=== PATIENT | female | born 1965 | race Asian ===

== ENCOUNTER 2019-11-02 14:10 | Inpatient (IN) | payer OTHER ==
[~2019-11-02] VITALS: Ht 160 cm; Wt 59.9 kg
[2019-11-02] MEDS ORDERED: LACTULOSE 20 GM/30 ML SOLUTION UDCUP PO PRN (16:00)
[2019-11-02] MEDS ORDERED: MELATONIN 5 MG TABLET PO PRN (16:00)
[2019-11-02] MEDS ORDERED: DEXTROSE 50%-WATER 25 GM/50 ML SYRINGE IVP PRN (16:45)
[2019-11-02] MEDS: INSULIN LISPRO 100 UNITS/ML SQ PRN ×2 (17:48→21:48)
[2019-11-02 18:29] LABS: GLUCOMETER DEV NAME(LOC) 2WR.1C; GLUCOSE,POINT OF CARE 161 MG/DL (70-110)
[2019-11-02 19:41] VITALS: BP 125/89
[2019-11-02] MEDS: IPRATROPIUM BROMIDE 0.5 MG/2.5 ML NEB SOLUTION NEB PRN (20:40)
[2019-11-02] MEDS: ALBUTEROL SULFATE 2.5 MG/0.5 ML NEB SOLUTION NEB PRN (20:40)
[2019-11-02 20:52] VITALS: BP 128/66
[2019-11-02] MEDS: DOCUSATE SODIUM 100 MG CAPSULE PO SCH (20:58)
[2019-11-02] MEDS: METOPROLOL TARTRATE 25 MG TABLET PO SCH (20:58)
[2019-11-02] MEDS: LORazepam 0.5 MG TABLET PO PRN (20:58)
[2019-11-02] MEDS: SIMVASTATIN 20 MG TABLET PO SCH (20:58)
[2019-11-02] MEDS: SENNA 187 MG TABLET PO SCH (20:58)
[2019-11-02] MEDS ORDERED: INSULIN GLARGINE,HUM.REC.ANLOG 100 UNITS/ML SQ SCH (21:00)
[2019-11-02 22:21] LABS: GLUCOMETER DEV NAME(LOC) 2WR.1C; GLUCOSE,POINT OF CARE 160 MG/DL (70-110)
[2019-11-02] MEDS: OXYGEN THERAPY IH SCH (23:15)
[2019-11-02 23:55] VITALS: BP 109/80
[2019-11-03] MEDS ORDERED: PNEUMOCOCCAL VACCINE POLYVALENT 0.5 ML VIAL [PPSV23] IM ONE (00:30)
[2019-11-03 06:10] LABS: GLUCOMETER DEV NAME(LOC) 2WR.1C; GLUCOSE,POINT OF CARE 148 MG/DL (70-110)
[2019-11-03 07:20] VITALS: BP 106/69
[2019-11-03] MEDS: IPRATROPIUM BROMIDE 0.5 MG/2.5 ML NEB SOLUTION NEB PRN ×4 (07:39→20:06)
[2019-11-03] MEDS: ALBUTEROL SULFATE 2.5 MG/0.5 ML NEB SOLUTION NEB PRN ×4 (07:39→20:06)
[2019-11-03] MEDS: OXYGEN THERAPY IH SCH ×2 (08:01→15:59)
[2019-11-03] MEDS: DOCUSATE SODIUM 100 MG CAPSULE PO SCH ×2 (08:02→20:48)
[2019-11-03 08:05] LABS: BASOPHILS % (AUTO) 0.8 % (0.0-2.0); EOSINOPHILS % (AUTO) 2.5 % (1.0-6.0); HEMATOCRIT 38.8 % (36-46); HEMOGLOBIN 12.5 g/dL (12.0-16.0); LYMPHOCYTES # (AUTO) 2.7 K/uL (1.0-4.8); LYMPHOCYTES % (AUTO) 30.4 % (22.0-44.0); MEAN CORPUSCULAR HEMOGLOBIN 29.4 pg (26.0-34.0); MEAN CORPUSCULAR HGB CONC 32.1 G/dL (31.0-37.0); MEAN CORPUSCULAR VOLUME 92 fL (80-100); MONOCYTES # (AUTO) 0.6 K/uL (0.1-1.0); MONOCYTES % (AUTO) 7.3 % (2.0-9.0); NEUTROPHILS # (AUTO) 5.3 K/uL (1.8-7.7); PLATELET COUNT (AUTO) 311 K/uL (150-450); RED BLOOD CELL COUNT(AUTO) 4.23 MIL/uL (4.00-5.20); RED CELL DISTRIBUTION WIDTH 17.9 % (11.5-14.5)
[2019-11-03] MEDS: HYDROCHLOROTHIAZIDE 25 MG TABLET PO SCH (08:21)
[2019-11-03] MEDS: FENOFIBRATE 48 MG TABLET PO SCH (08:22)
[2019-11-03] MEDS: METOPROLOL TARTRATE 25 MG TABLET PO SCH ×2 (08:22→20:36)
[2019-11-03] MEDS: MULTIVITAMINS WITH MINERALS, THERAPEUTIC TABLET PO SCH (08:22)
[2019-11-03] MEDS: ENOXAPARIN SODIUM 40 MG/0.4 ML PF SYRINGE SQ SCH (08:22)
[2019-11-03] MEDS: INSULIN GLARGINE,HUM.REC.ANLOG 100 UNITS/ML SQ SCH (08:23)
[2019-11-03 08:24] LABS: ALANINE AMINOTRANSFERASE 37 U/L (12-78); ALBUMIN 3.5 g/dL (3.4-5.0); ALKALINE PHOSPHATASE 78 U/L (46-116); ANION GAP 11 mmol/L (8-16); ASPARTATE AMINOTRANSFERASE 26 U/L (15-37); BILIRUBIN,TOTAL 0.7 mg/dL (0.1-1.0); CALCIUM, TOTAL 9.5 mg/dL (8.8-10.5); CARBON DIOXIDE 25 mmol/L (22-29); CHLORIDE 103 mmol/L (98-107); GLOMERULAR FILTR. RATE CALC > 60 mL/min (>60); GLUCOSE,RANDOM 170 mg/dL (70-110); POTASSIUM 4.1 mmol/L (3.5-5.1); SODIUM SERUM 139 mmol/L (136-145); UREA NITROGEN, BLOOD 12 mg/dL (7-18)
[2019-11-03] MEDS: INSULIN LISPRO 100 UNITS/ML SQ PRN ×3 (08:24→17:41)
[2019-11-03] MEDS: LOSARTAN POTASSIUM 50 MG TABLET PO SCH ×2 (09:00→13:26)
[2019-11-03] MEDS: AmLODIPine BESYLATE 5 MG TABLET PO SCH (09:00)
[2019-11-03] MEDS: COLD CREAM, SKIN EMOLLIENT 170 GM JAR TP SCH ×2 (09:30→20:37)
[2019-11-03 13:25] VITALS: BP 129/79
[2019-11-03 15:20] VITALS: BP 122/79
[2019-11-03 18:19] LABS: GLUCOMETER DEV NAME(LOC) 2WR.2; GLUCOSE,POINT OF CARE 167 MG/DL (70-110)
[2019-11-03] MEDS: SIMVASTATIN 20 MG TABLET PO SCH (20:36)
[2019-11-03] MEDS: LORazepam 0.5 MG TABLET PO PRN (20:37)
[2019-11-03] MEDS: SENNA 187 MG TABLET PO SCH (20:49)
[2019-11-03 21:20] LABS: GLUCOMETER DEV NAME(LOC) 2WR.2; GLUCOSE,POINT OF CARE 139 MG/DL (70-110)
[2019-11-03 23:52] LABS: GLUCOMETER DEV NAME(LOC) 2WR.1C; GLUCOSE,POINT OF CARE 145 MG/DL (70-110)
[2019-11-04] MEDS: OXYGEN THERAPY IH SCH ×4 (00:07→23:01)
[2019-11-04 01:19] VITALS: BP 108/71
[2019-11-04 06:06] LABS: GLUCOMETER DEV NAME(LOC) 2WR.2; GLUCOSE,POINT OF CARE 131 MG/DL (70-110)
[2019-11-04 07:05] VITALS: BP 128/77
[2019-11-04] MEDS: ALBUTEROL SULFATE 2.5 MG/0.5 ML NEB SOLUTION NEB PRN ×3 (07:34→20:22)
[2019-11-04] MEDS: IPRATROPIUM BROMIDE 0.5 MG/2.5 ML NEB SOLUTION NEB PRN ×3 (07:35→20:22)
[2019-11-04] MEDS: METOPROLOL TARTRATE 25 MG TABLET PO SCH ×2 (08:09→20:04)
[2019-11-04] MEDS: HYDROCHLOROTHIAZIDE 25 MG TABLET PO SCH (08:12)
[2019-11-04] MEDS: MULTIVITAMINS WITH MINERALS, THERAPEUTIC TABLET PO SCH (08:13)
[2019-11-04] MEDS: LOSARTAN POTASSIUM 50 MG TABLET PO SCH (08:13)
[2019-11-04] MEDS: FENOFIBRATE 48 MG TABLET PO SCH (08:14)
[2019-11-04] MEDS: COLD CREAM, SKIN EMOLLIENT 170 GM JAR TP SCH ×2 (08:15→21:16)
[2019-11-04] MEDS: ENOXAPARIN SODIUM 40 MG/0.4 ML PF SYRINGE SQ SCH (08:15)
[2019-11-04] MEDS: INSULIN GLARGINE,HUM.REC.ANLOG 100 UNITS/ML SQ SCH (08:21)
[2019-11-04] MEDS: DOCUSATE SODIUM 100 MG CAPSULE PO SCH ×3 (09:00→20:59)
[2019-11-04 10:54] VITALS: BP 110/67
[2019-11-04] MEDS: AmLODIPine BESYLATE 5 MG TABLET PO SCH (10:58)
[2019-11-04] MEDS: INSULIN LISPRO 100 UNITS/ML SQ PRN ×2 (12:39→17:46)
[2019-11-04 12:43] LABS: GLUCOMETER DEV NAME(LOC) 2WR.2; GLUCOSE,POINT OF CARE 183 MG/DL (70-110)
[2019-11-04 15:15] VITALS: BP 108/60
[2019-11-04 17:50] LABS: GLUCOMETER DEV NAME(LOC) 2WR.2; GLUCOSE,POINT OF CARE 207 MG/DL (70-110)
[2019-11-04 19:58] VITALS: BP 118/61
[2019-11-04] MEDS: SENNA 187 MG TABLET PO SCH ×2 (20:04→20:59)
[2019-11-04] MEDS: SIMVASTATIN 20 MG TABLET PO SCH (20:05)
[2019-11-04] MEDS: LORazepam 0.5 MG TABLET PO PRN ×2 (20:05→21:07)
[2019-11-04 20:59] LABS: GLUCOMETER DEV NAME(LOC) 2WR.2; GLUCOSE,POINT OF CARE 126 MG/DL (70-110)
[2019-11-05 00:30] VITALS: BP 115/73
[2019-11-05 06:57] LABS: GLUCOMETER DEV NAME(LOC) 2WR.2; GLUCOSE,POINT OF CARE 131 MG/DL (70-110)
[2019-11-05 07:14] VITALS: BP 111/78
[2019-11-05] MEDS: OXYGEN THERAPY IH SCH ×3 (07:23→23:01)
[2019-11-05] MEDS: ALBUTEROL SULFATE 2.5 MG/0.5 ML NEB SOLUTION NEB PRN ×3 (07:23→19:46)
[2019-11-05] MEDS: IPRATROPIUM BROMIDE 0.5 MG/2.5 ML NEB SOLUTION NEB PRN ×3 (07:23→19:46)
[2019-11-05] MEDS: HYDROCHLOROTHIAZIDE 25 MG TABLET PO SCH (08:42)
[2019-11-05] MEDS: FENOFIBRATE 48 MG TABLET PO SCH (08:42)
[2019-11-05] MEDS: ENOXAPARIN SODIUM 40 MG/0.4 ML PF SYRINGE SQ SCH (08:43)
[2019-11-05] MEDS: LOSARTAN POTASSIUM 50 MG TABLET PO SCH (08:43)
[2019-11-05] MEDS: MULTIVITAMINS WITH MINERALS, THERAPEUTIC TABLET PO SCH (08:43)
[2019-11-05] MEDS: DOCUSATE SODIUM 100 MG CAPSULE PO SCH ×2 (08:43→20:21)
[2019-11-05] MEDS: METOPROLOL TARTRATE 25 MG TABLET PO SCH ×2 (08:43→20:21)
[2019-11-05] MEDS: AmLODIPine BESYLATE 5 MG TABLET PO SCH (08:43)
[2019-11-05] MEDS: INSULIN GLARGINE,HUM.REC.ANLOG 100 UNITS/ML SQ SCH (08:50)
[2019-11-05] MEDS: COLD CREAM, SKIN EMOLLIENT 170 GM JAR TP SCH ×2 (08:52→20:22)
[2019-11-05] MEDS: GuaiFENesin [SUGAR-FREE] 200 MG/10 ML SOLUTION UDCUP PO PRN ×2 (12:24→23:02)
[2019-11-05 13:32] LABS: GLUCOMETER DEV NAME(LOC) 2WR.2; GLUCOSE,POINT OF CARE 118 MG/DL (70-110)
[2019-11-05 15:15] VITALS: BP 111/74
[2019-11-05] MEDS: GABAPENTIN 100 MG CAPSULE PO SCH ×2 (15:24→20:21)
[2019-11-05] MEDS: INSULIN LISPRO 100 UNITS/ML SQ PRN ×2 (17:34→20:25)
[2019-11-05 17:55] LABS: GLUCOMETER DEV NAME(LOC) 2WR.2; GLUCOSE,POINT OF CARE 158 MG/DL (70-110)
[2019-11-05] MEDS: SIMVASTATIN 20 MG TABLET PO SCH (20:21)
[2019-11-05] MEDS: SENNA 187 MG TABLET PO SCH (20:21)
[2019-11-05] MEDS: LORazepam 0.5 MG TABLET PO PRN (20:22)
[2019-11-05 20:54] LABS: GLUCOMETER DEV NAME(LOC) 2WR.2; GLUCOSE,POINT OF CARE 166 MG/DL (70-110)
[2019-11-05 23:13] VITALS: BP 129/67
[2019-11-06 06:10] LABS: GLUCOMETER DEV NAME(LOC) 2WR.2; GLUCOSE,POINT OF CARE 142 MG/DL (70-110)
[2019-11-06 07:10] VITALS: BP 111/73
[2019-11-06] MEDS: ENOXAPARIN SODIUM 40 MG/0.4 ML PF SYRINGE SQ SCH (08:12)
[2019-11-06] MEDS: GuaiFENesin [SUGAR-FREE] 200 MG/10 ML SOLUTION UDCUP PO PRN ×3 (08:12→20:42)
[2019-11-06] MEDS: GABAPENTIN 100 MG CAPSULE PO SCH ×3 (08:13→20:27)
[2019-11-06] MEDS: DOCUSATE SODIUM 100 MG CAPSULE PO SCH ×2 (08:13→20:27)
[2019-11-06] MEDS: MULTIVITAMINS WITH MINERALS, THERAPEUTIC TABLET PO SCH (08:13)
[2019-11-06] MEDS: AmLODIPine BESYLATE 5 MG TABLET PO SCH (08:13)
[2019-11-06] MEDS: LOSARTAN POTASSIUM 50 MG TABLET PO SCH (08:13)
[2019-11-06] MEDS: HYDROCHLOROTHIAZIDE 25 MG TABLET PO SCH (08:13)
[2019-11-06] MEDS: METOPROLOL TARTRATE 25 MG TABLET PO SCH ×2 (08:13→20:27)
[2019-11-06] MEDS: FENOFIBRATE 48 MG TABLET PO SCH (08:13)
[2019-11-06] MEDS: OXYGEN THERAPY IH SCH ×2 (08:47→22:38)
[2019-11-06] MEDS: COLD CREAM, SKIN EMOLLIENT 170 GM JAR TP SCH ×2 (08:48→20:33)
[2019-11-06] MEDS: INSULIN LISPRO 100 UNITS/ML SQ PRN ×2 (08:50→17:40)
[2019-11-06] MEDS: INSULIN GLARGINE,HUM.REC.ANLOG 100 UNITS/ML SQ SCH (08:52)
[2019-11-06] MEDS: ALBUTEROL SULFATE 2.5 MG/0.5 ML NEB SOLUTION NEB PRN ×4 (09:10→22:31)
[2019-11-06] MEDS: IPRATROPIUM BROMIDE 0.5 MG/2.5 ML NEB SOLUTION NEB PRN ×4 (09:10→22:30)
[2019-11-06 12:51] LABS: GLUCOMETER DEV NAME(LOC) 2WR.2; GLUCOSE,POINT OF CARE 134 MG/DL (70-110)
[2019-11-06] MEDS: ACETAMINOPHEN 325 MG TABLET PO PRN (13:43)
[2019-11-06 15:20] VITALS: BP 113/75
[2019-11-06 17:57] LABS: GLUCOMETER DEV NAME(LOC) 2WR.2; GLUCOSE,POINT OF CARE 152 MG/DL (70-110)
[2019-11-06] MEDS: SIMVASTATIN 20 MG TABLET PO SCH (20:27)
[2019-11-06] MEDS: LORazepam 0.5 MG TABLET PO PRN (20:27)
[2019-11-06] MEDS: SENNA 187 MG TABLET PO SCH (20:32)
[2019-11-07] VITALS: BP 98/73
[2019-11-07 01:00] VITALS: BP 120/70
[2019-11-07] MEDS: OXYGEN THERAPY IH SCH ×4 (03:33→23:22)
[2019-11-07 05:40] LABS: GLUCOMETER DEV NAME(LOC) 2WR.1C; GLUCOSE,POINT OF CARE 139 MG/DL (70-110)
[2019-11-07 06:21] LABS: GLUCOMETER DEV NAME(LOC) 2WR.1C; GLUCOSE,POINT OF CARE 133 MG/DL (70-110)
[2019-11-07] MEDS: GuaiFENesin [SUGAR-FREE] 200 MG/10 ML SOLUTION UDCUP PO PRN ×3 (08:35→22:09)
[2019-11-07] MEDS: DOCUSATE SODIUM 100 MG CAPSULE PO SCH ×3 (08:36→20:43)
[2019-11-07] MEDS: INSULIN GLARGINE,HUM.REC.ANLOG 100 UNITS/ML SQ SCH (08:39)
[2019-11-07 08:56] VITALS: BP 121/72
[2019-11-07] MEDS: AmLODIPine BESYLATE 5 MG TABLET PO SCH (09:00)
[2019-11-07] MEDS: METOPROLOL TARTRATE 25 MG TABLET PO SCH ×2 (09:00→20:38)
[2019-11-07] MEDS: LOSARTAN POTASSIUM 50 MG TABLET PO SCH (09:20)
[2019-11-07] MEDS: FENOFIBRATE 48 MG TABLET PO SCH (09:20)
[2019-11-07] MEDS: GABAPENTIN 100 MG CAPSULE PO SCH ×3 (09:21→20:38)
[2019-11-07] MEDS: ENOXAPARIN SODIUM 40 MG/0.4 ML PF SYRINGE SQ SCH (09:21)
[2019-11-07] MEDS: HYDROCHLOROTHIAZIDE 25 MG TABLET PO SCH (09:21)
[2019-11-07] MEDS: MULTIVITAMINS WITH MINERALS, THERAPEUTIC TABLET PO SCH (09:21)
[2019-11-07] MEDS: COLD CREAM, SKIN EMOLLIENT 170 GM JAR TP SCH ×2 (09:34→20:42)
[2019-11-07 13:03] LABS: GLUCOMETER DEV NAME(LOC) 2WR.1C; GLUCOSE,POINT OF CARE 138 MG/DL (70-110)
[2019-11-07 15:35] VITALS: BP 113/75
[2019-11-07] MEDS: IPRATROPIUM BROMIDE 0.5 MG/2.5 ML NEB SOLUTION NEB PRN ×2 (16:09→20:09)
[2019-11-07] MEDS: ALBUTEROL SULFATE 2.5 MG/0.5 ML NEB SOLUTION NEB PRN ×2 (16:09→20:09)
[2019-11-07] MEDS: INSULIN LISPRO 100 UNITS/ML SQ PRN (18:05)
[2019-11-07] MEDS: MetFORMIN HCL 500 MG TABLET PO SCH (18:05)
[2019-11-07 19:43] VITALS: BP 109/72
[2019-11-07] MEDS: SIMVASTATIN 20 MG TABLET PO SCH (20:38)
[2019-11-07] MEDS: LORazepam 0.5 MG TABLET PO PRN (20:42)
[2019-11-07] MEDS: SENNA 187 MG TABLET PO SCH (20:44)
[2019-11-07 22:08] LABS: GLUCOMETER DEV NAME(LOC) 2WR.1C; GLUCOSE,POINT OF CARE 137 MG/DL (70-110)
[2019-11-07 22:16] LABS: GLUCOMETER DEV NAME(LOC) 2WR.2; GLUCOSE,POINT OF CARE 164 MG/DL (70-110)
[2019-11-08 05:30] VITALS: BP 111/76
[2019-11-08 06:00] LABS: GLUCOMETER DEV NAME(LOC) 2WR.2; GLUCOSE,POINT OF CARE 141 MG/DL (70-110)
[2019-11-08 07:13] VITALS: BP 119/72
[2019-11-08] MEDS: MULTIVITAMINS WITH MINERALS, THERAPEUTIC TABLET PO SCH (08:06)
[2019-11-08] MEDS: METOPROLOL TARTRATE 25 MG TABLET PO SCH ×2 (08:07→20:21)
[2019-11-08] MEDS: MetFORMIN HCL 500 MG TABLET PO SCH ×2 (08:07→17:26)
[2019-11-08] MEDS: HYDROCHLOROTHIAZIDE 25 MG TABLET PO SCH (08:07)
[2019-11-08] MEDS: GABAPENTIN 100 MG CAPSULE PO SCH ×3 (08:07→20:21)
[2019-11-08] MEDS: LOSARTAN POTASSIUM 50 MG TABLET PO SCH (08:07)
[2019-11-08] MEDS: COLD CREAM, SKIN EMOLLIENT 170 GM JAR TP SCH ×2 (08:08→20:22)
[2019-11-08] MEDS: ENOXAPARIN SODIUM 40 MG/0.4 ML PF SYRINGE SQ SCH (08:08)
[2019-11-08] MEDS: INSULIN LISPRO 100 UNITS/ML SQ PRN ×2 (08:11→17:30)
[2019-11-08] MEDS: FENOFIBRATE 48 MG TABLET PO SCH (08:13)
[2019-11-08] MEDS: OXYGEN THERAPY IH SCH ×3 (08:16→20:53)
[2019-11-08] MEDS: DOCUSATE SODIUM 100 MG CAPSULE PO SCH ×2 (08:19→20:21)
[2019-11-08] MEDS: GuaiFENesin [SUGAR-FREE] 200 MG/10 ML SOLUTION UDCUP PO PRN ×2 (09:25→19:24)
[2019-11-08 13:09] LABS: GLUCOMETER DEV NAME(LOC) 2WR.2; GLUCOSE,POINT OF CARE 114 MG/DL (70-110)
[2019-11-08] MEDS: ESCITALOPRAM OXALATE 10 MG TABLET PO SCH (13:14)
[2019-11-08 15:04] VITALS: BP 131/84
[2019-11-08 17:26] LABS: GLUCOMETER DEV NAME(LOC) 2WR.2; GLUCOSE,POINT OF CARE 147 MG/DL (70-110)
[2019-11-08] MEDS: SENNA 187 MG TABLET PO SCH (20:21)
[2019-11-08] MEDS: SIMVASTATIN 20 MG TABLET PO SCH (20:21)
[2019-11-08] MEDS: LORazepam 0.5 MG TABLET PO PRN (20:28)
[2019-11-08] MEDS: ALBUTEROL SULFATE 2.5 MG/0.5 ML NEB SOLUTION NEB PRN (20:53)
[2019-11-08] MEDS: IPRATROPIUM BROMIDE 0.5 MG/2.5 ML NEB SOLUTION NEB PRN (20:53)
[2019-11-08 21:47] LABS: GLUCOMETER DEV NAME(LOC) 2WR.2; GLUCOSE,POINT OF CARE 119 MG/DL (70-110)
[2019-11-09 05:23] VITALS: BP 126/81
[2019-11-09 06:24] LABS: GLUCOMETER DEV NAME(LOC) 2WR.2; GLUCOSE,POINT OF CARE 178 MG/DL (70-110)
[2019-11-09 07:30] VITALS: BP 122/79
[2019-11-09] MEDS: ENOXAPARIN SODIUM 40 MG/0.4 ML PF SYRINGE SQ SCH (07:55)
[2019-11-09] MEDS: OXYGEN THERAPY IH SCH ×3 (07:55→23:17)
[2019-11-09] MEDS: MetFORMIN HCL 500 MG TABLET PO SCH ×2 (07:56→17:52)
[2019-11-09] MEDS: GuaiFENesin [SUGAR-FREE] 200 MG/10 ML SOLUTION UDCUP PO PRN ×2 (07:56→21:10)
[2019-11-09] MEDS: IPRATROPIUM BROMIDE 0.5 MG/2.5 ML NEB SOLUTION NEB PRN ×2 (08:11→15:21)
[2019-11-09] MEDS: ALBUTEROL SULFATE 2.5 MG/0.5 ML NEB SOLUTION NEB PRN ×2 (08:11→15:22)
[2019-11-09] MEDS: INSULIN LISPRO 100 UNITS/ML SQ PRN (08:27)
[2019-11-09] MEDS: GABAPENTIN 100 MG CAPSULE PO SCH ×3 (08:28→20:00)
[2019-11-09] MEDS: FENOFIBRATE 48 MG TABLET PO SCH (08:28)
[2019-11-09] MEDS: HYDROCHLOROTHIAZIDE 25 MG TABLET PO SCH (08:28)
[2019-11-09] MEDS: ESCITALOPRAM OXALATE 10 MG TABLET PO SCH (08:28)
[2019-11-09] MEDS: MULTIVITAMINS WITH MINERALS, THERAPEUTIC TABLET PO SCH (08:28)
[2019-11-09] MEDS: METOPROLOL TARTRATE 25 MG TABLET PO SCH ×2 (08:28→20:59)
[2019-11-09] MEDS: LOSARTAN POTASSIUM 50 MG TABLET PO SCH (08:28)
[2019-11-09] MEDS: DOCUSATE SODIUM 100 MG CAPSULE PO SCH ×2 (09:00→20:00)
[2019-11-09] MEDS: CALCIUM CARBONATE 500 MG CHEWABLE TABLET CHEW PRN ×2 (09:09→19:59)
[2019-11-09] MEDS: COLD CREAM, SKIN EMOLLIENT 170 GM JAR TP SCH ×2 (09:10→20:02)
[2019-11-09] MEDS: ACETAMINOPHEN 325 MG TABLET PO PRN (12:28)
[2019-11-09 13:20] LABS: GLUCOMETER DEV NAME(LOC) 2WR.2; GLUCOSE,POINT OF CARE 124 MG/DL (70-110)
[2019-11-09 15:27] VITALS: BP 115/67
[2019-11-09 19:16] LABS: GLUCOMETER DEV NAME(LOC) 2WR.2; GLUCOSE,POINT OF CARE 101 MG/DL (70-110)
[2019-11-09] MEDS: SIMVASTATIN 20 MG TABLET PO SCH (20:00)
[2019-11-09] MEDS: SENNA 187 MG TABLET PO SCH (20:01)
[2019-11-09] MEDS: LORazepam 0.5 MG TABLET PO PRN (20:59)
[2019-11-09 21:17] VITALS: BP 134/84
[2019-11-10 05:23] VITALS: BP 115/87
[2019-11-10 05:33] LABS: GLUCOMETER DEV NAME(LOC) 2WR.2; GLUCOSE,POINT OF CARE 133 MG/DL (70-110)
[2019-11-10 06:19] LABS: GLUCOMETER DEV NAME(LOC) 2WR.1C; GLUCOSE,POINT OF CARE 134 MG/DL (70-110)
[2019-11-10] MEDS: OXYGEN THERAPY IH SCH ×3 (08:14→23:42)
[2019-11-10] MEDS: LOSARTAN POTASSIUM 50 MG TABLET PO SCH (08:14)
[2019-11-10] MEDS: METOPROLOL TARTRATE 25 MG TABLET PO SCH ×2 (08:14→21:30)
[2019-11-10] MEDS: CALCIUM CARBONATE 500 MG CHEWABLE TABLET CHEW PRN ×4 (08:14→21:30)
[2019-11-10] MEDS: COLD CREAM, SKIN EMOLLIENT 170 GM JAR TP SCH ×2 (08:14→21:31)
[2019-11-10] MEDS: FENOFIBRATE 48 MG TABLET PO SCH (08:15)
[2019-11-10] MEDS: ESCITALOPRAM OXALATE 10 MG TABLET PO SCH (08:15)
[2019-11-10] MEDS: HYDROCHLOROTHIAZIDE 25 MG TABLET PO SCH (08:15)
[2019-11-10] MEDS: MetFORMIN HCL 500 MG TABLET PO SCH ×2 (08:15→17:29)
[2019-11-10] MEDS: GABAPENTIN 100 MG CAPSULE PO SCH ×3 (08:15→21:30)
[2019-11-10] MEDS: MULTIVITAMINS WITH MINERALS, THERAPEUTIC TABLET PO SCH (08:15)
[2019-11-10] MEDS: GuaiFENesin [SUGAR-FREE] 200 MG/10 ML SOLUTION UDCUP PO PRN (08:16)
[2019-11-10] MEDS: ENOXAPARIN SODIUM 40 MG/0.4 ML PF SYRINGE SQ SCH (08:16)
[2019-11-10 08:30] VITALS: BP 113/77
[2019-11-10] MEDS: IPRATROPIUM BROMIDE 0.5 MG/2.5 ML NEB SOLUTION NEB PRN ×3 (08:32→22:38)
[2019-11-10] MEDS: ALBUTEROL SULFATE 2.5 MG/0.5 ML NEB SOLUTION NEB PRN ×3 (08:32→22:38)
[2019-11-10] MEDS: DOCUSATE SODIUM 100 MG CAPSULE PO SCH ×2 (09:00→20:25)
[2019-11-10] MEDS ORDERED: MULT-248 PO (13:58)
[2019-11-10] MEDS ORDERED: METO25 PO (13:58)
[2019-11-10] MEDS ORDERED: FENO48TA20 PO (13:58)
[2019-11-10] MEDS ORDERED: ESCI-8 PO (13:58)
[2019-11-10] MEDS ORDERED: GABA-1216 PO (13:58)
[2019-11-10] MEDS ORDERED: ALBO180CR TP (13:58)
[2019-11-10] MEDS ORDERED: DOCU-275 PO (13:58)
[2019-11-10] MEDS ORDERED: METF-444 PO (13:58)
[2019-11-10] MEDS ORDERED: SIMV-260 PO (13:58)
[2019-11-10] MEDS ORDERED: LOSA50TA37 PO (13:58)
[2019-11-10] MEDS ORDERED: HYDR-1475 PO (13:58)
[2019-11-10] MEDS ORDERED: SENN8.6T90 PO (13:58)
[2019-11-10 16:25] VITALS: BP 130/84
[2019-11-10] MEDS: ACETAMINOPHEN 325 MG TABLET PO PRN (18:45)
[2019-11-10] MEDS: SENNA 187 MG TABLET PO SCH (20:25)
[2019-11-10] MEDS: SIMVASTATIN 20 MG TABLET PO SCH (21:30)
[2019-11-10] MEDS: LORazepam 0.5 MG TABLET PO PRN (21:36)
[2019-11-10 22:15] LABS: GLUCOMETER DEV NAME(LOC) 2WR.2; GLUCOSE,POINT OF CARE 98 MG/DL (70-110)
[2019-11-10 22:15] LABS: GLUCOMETER DEV NAME(LOC) 2WR.2; GLUCOSE,POINT OF CARE 123 MG/DL (70-110)
[2019-11-10 23:49] VITALS: BP 130/84
[2019-11-11 04:55] LABS: GLUCOMETER DEV NAME(LOC) 2WR.1C; GLUCOSE,POINT OF CARE 104 MG/DL (70-110)
[2019-11-11] MEDS: CALCIUM CARBONATE 500 MG CHEWABLE TABLET CHEW PRN ×3 (06:04→21:06)
[2019-11-11 06:34] LABS: GLUCOMETER DEV NAME(LOC) 2WR.2; GLUCOSE,POINT OF CARE 129 MG/DL (70-110)
[2019-11-11] MEDS: OXYGEN THERAPY IH SCH ×2 (07:51→15:59)
[2019-11-11] MEDS: MetFORMIN HCL 500 MG TABLET PO SCH (07:51)
[2019-11-11] MEDS: IPRATROPIUM BROMIDE 0.5 MG/2.5 ML NEB SOLUTION NEB PRN ×2 (07:57→18:53)
[2019-11-11] MEDS: ALBUTEROL SULFATE 2.5 MG/0.5 ML NEB SOLUTION NEB PRN ×2 (07:58→18:52)
[2019-11-11 07:59] VITALS: BP 117/72
[2019-11-11] MEDS: ENOXAPARIN SODIUM 40 MG/0.4 ML PF SYRINGE SQ SCH (08:27)
[2019-11-11] MEDS: ESCITALOPRAM OXALATE 10 MG TABLET PO SCH (08:27)
[2019-11-11] MEDS: LOSARTAN POTASSIUM 50 MG TABLET PO SCH (08:27)
[2019-11-11] MEDS: GABAPENTIN 100 MG CAPSULE PO SCH ×3 (08:27→20:24)
[2019-11-11] MEDS: MULTIVITAMINS WITH MINERALS, THERAPEUTIC TABLET PO SCH (08:27)
[2019-11-11] MEDS: COLD CREAM, SKIN EMOLLIENT 170 GM JAR TP SCH ×2 (08:28→20:25)
[2019-11-11] MEDS: HYDROCHLOROTHIAZIDE 25 MG TABLET PO SCH (08:28)
[2019-11-11] MEDS: DOCUSATE SODIUM 100 MG CAPSULE PO SCH ×2 (08:28→20:25)
[2019-11-11] MEDS: FENOFIBRATE 48 MG TABLET PO SCH (08:28)
[2019-11-11] MEDS: METOPROLOL TARTRATE 25 MG TABLET PO SCH ×2 (08:28→20:24)
[2019-11-11] MEDS: GuaiFENesin [SUGAR-FREE] 200 MG/10 ML SOLUTION UDCUP PO PRN (08:58)
[2019-11-11 13:02] LABS: GLUCOMETER DEV NAME(LOC) 2WR.2; GLUCOSE,POINT OF CARE 142 MG/DL (70-110)
[2019-11-11] MEDS: SIMETHICONE 80 MG CHEWABLE TABLET CHEW PRN ×3 (13:18→20:25)
[2019-11-11 15:10] VITALS: BP 133/84
[2019-11-11 18:04] LABS: GLUCOMETER DEV NAME(LOC) 2WR.2; GLUCOSE,POINT OF CARE 108 MG/DL (70-110)
[2019-11-11] MEDS: SIMVASTATIN 20 MG TABLET PO SCH (20:24)
[2019-11-11] MEDS: LORazepam 0.5 MG TABLET PO PRN (20:24)
[2019-11-11] MEDS: PANTOPRAZOLE SODIUM 40 MG DR TABLET PO SCH (20:24)
[2019-11-11] MEDS: SENNA 187 MG TABLET PO SCH (20:25)
[2019-11-11 20:44] LABS: GLUCOMETER DEV NAME(LOC) 2WR.2; GLUCOSE,POINT OF CARE 135 MG/DL (70-110)
[2019-11-12 00:16] VITALS: BP 115/65
[2019-11-12] MEDS: OXYGEN THERAPY IH SCH ×4 (01:07→22:56)
[2019-11-12 07:13] LABS: GLUCOMETER DEV NAME(LOC) 2WR.2; GLUCOSE,POINT OF CARE 113 MG/DL (70-110)
[2019-11-12 08:08] VITALS: BP 106/61
[2019-11-12] MEDS: IPRATROPIUM BROMIDE 0.5 MG/2.5 ML NEB SOLUTION NEB PRN ×3 (08:56→22:25)
[2019-11-12] MEDS: ALBUTEROL SULFATE 2.5 MG/0.5 ML NEB SOLUTION NEB PRN ×3 (08:56→22:25)
[2019-11-12] MEDS: DOCUSATE SODIUM 100 MG CAPSULE PO SCH ×2 (09:00→20:54)
[2019-11-12] MEDS: FENOFIBRATE 48 MG TABLET PO SCH (09:31)
[2019-11-12] MEDS: ENOXAPARIN SODIUM 40 MG/0.4 ML PF SYRINGE SQ SCH (09:32)
[2019-11-12] MEDS: LOSARTAN POTASSIUM 50 MG TABLET PO SCH (09:35)
[2019-11-12] MEDS: SitaGLIPtin PHOSPHATE 50 MG TABLET PO SCH (09:35)
[2019-11-12] MEDS: METOPROLOL TARTRATE 25 MG TABLET PO SCH ×2 (09:36→20:54)
[2019-11-12] MEDS: GABAPENTIN 100 MG CAPSULE PO SCH ×3 (09:36→20:54)
[2019-11-12] MEDS: HYDROCHLOROTHIAZIDE 25 MG TABLET PO SCH (09:36)
[2019-11-12] MEDS: MULTIVITAMINS WITH MINERALS, THERAPEUTIC TABLET PO SCH (09:36)
[2019-11-12] MEDS: ESCITALOPRAM OXALATE 10 MG TABLET PO SCH (09:37)
[2019-11-12] MEDS: SIMETHICONE 80 MG CHEWABLE TABLET CHEW PRN ×2 (09:40→20:53)
[2019-11-12] MEDS: CALCIUM CARBONATE 500 MG CHEWABLE TABLET CHEW PRN ×3 (09:44→21:07)
[2019-11-12] MEDS: COLD CREAM, SKIN EMOLLIENT 170 GM JAR TP SCH ×2 (09:55→20:54)
[2019-11-12 16:02] VITALS: BP 114/69
[2019-11-12 18:07] LABS: GLUCOMETER DEV NAME(LOC) 2WR.2; GLUCOSE,POINT OF CARE 103 MG/DL (70-110)
[2019-11-12 20:45] VITALS: BP 113/78
[2019-11-12] MEDS: SIMVASTATIN 20 MG TABLET PO SCH (20:53)
[2019-11-12] MEDS: PANTOPRAZOLE SODIUM 40 MG DR TABLET PO SCH (20:54)
[2019-11-12] MEDS: SENNA 187 MG TABLET PO SCH (20:54)
[2019-11-12] MEDS: LORazepam 0.5 MG TABLET PO PRN (20:54)
[2019-11-12 21:18] LABS: GLUCOMETER DEV NAME(LOC) 2WR.2; GLUCOSE,POINT OF CARE 124 MG/DL (70-110)
[2019-11-13 00:32] VITALS: BP 102/63
[2019-11-13] MEDS: SIMETHICONE 80 MG CHEWABLE TABLET CHEW PRN ×2 (06:24→12:36)
[2019-11-13 07:24] VITALS: BP 117/64
[2019-11-13 08:11] LABS: BASOPHILS % (AUTO) 0.6 % (0.0-2.0); EOSINOPHILS % (AUTO) 2.4 % (1.0-6.0); HEMATOCRIT 37.2 % (36-46); HEMOGLOBIN 12.3 g/dL (12.0-16.0); LYMPHOCYTES # (AUTO) 1.8 K/uL (1.0-4.8); LYMPHOCYTES % (AUTO) 29.5 % (22.0-44.0); MEAN CORPUSCULAR HEMOGLOBIN 29.9 pg (26.0-34.0); MEAN CORPUSCULAR VOLUME 91 fL (80-100); MONOCYTES # (AUTO) 0.5 K/uL (0.1-1.0); MONOCYTES % (AUTO) 8.3 % (2.0-9.0); NEUTROPHILS # (AUTO) 3.7 K/uL (1.8-7.7); NEUTROPHILS % (AUTO) 59.2 % (40.0-70.0); PLATELET COUNT (AUTO) 296 K/uL (150-450); RED BLOOD CELL COUNT(AUTO) 4.11 MIL/uL (4.00-5.20); RED CELL DISTRIBUTION WIDTH 16.8 % (11.5-14.5)
[2019-11-13] MEDS: COLD CREAM, SKIN EMOLLIENT 170 GM JAR TP SCH ×2 (08:11→20:57)
[2019-11-13] MEDS: OXYGEN THERAPY IH SCH ×3 (08:11→23:23)
[2019-11-13] MEDS: ESCITALOPRAM OXALATE 10 MG TABLET PO SCH (08:12)
[2019-11-13] MEDS: FENOFIBRATE 48 MG TABLET PO SCH (08:12)
[2019-11-13] MEDS: ENOXAPARIN SODIUM 40 MG/0.4 ML PF SYRINGE SQ SCH (08:12)
[2019-11-13] MEDS: METOPROLOL TARTRATE 25 MG TABLET PO SCH ×2 (08:12→20:55)
[2019-11-13] MEDS: SitaGLIPtin PHOSPHATE 50 MG TABLET PO SCH (08:12)
[2019-11-13] MEDS: LOSARTAN POTASSIUM 50 MG TABLET PO SCH (08:12)
[2019-11-13] MEDS: MULTIVITAMINS WITH MINERALS, THERAPEUTIC TABLET PO SCH (08:13)
[2019-11-13] MEDS: CALCIUM CARBONATE 500 MG CHEWABLE TABLET CHEW PRN ×2 (08:13→15:40)
[2019-11-13] MEDS: GABAPENTIN 100 MG CAPSULE PO SCH ×3 (08:13→20:55)
[2019-11-13] MEDS: GuaiFENesin [SUGAR-FREE] 200 MG/10 ML SOLUTION UDCUP PO PRN ×2 (08:13→20:55)
[2019-11-13] MEDS: HYDROCHLOROTHIAZIDE 25 MG TABLET PO SCH (08:13)
[2019-11-13 08:24] LABS: ALANINE AMINOTRANSFERASE 34 U/L (12-78); ALBUMIN 3.6 g/dL (3.4-5.0); ALKALINE PHOSPHATASE 51 U/L (46-116); ANION GAP 6 mmol/L (8-16); ASPARTATE AMINOTRANSFERASE 23 U/L (15-37); BILIRUBIN,TOTAL 0.5 mg/dL (0.1-1.0); CALCIUM, TOTAL 9.8 mg/dL (8.8-10.5); CARBON DIOXIDE 31 mmol/L (22-29); CHLORIDE 100 mmol/L (98-107); CREATININE 0.48 mg/dL (0.60-1.30); GLOMERULAR FILTR. RATE CALC > 60 mL/min (>60); GLUCOSE,RANDOM 124 mg/dL (70-110); POTASSIUM 4.1 mmol/L (3.5-5.1); SODIUM SERUM 137 mmol/L (136-145); TOTAL PROTEIN, SERUM 7.7 g/dL (6.4-8.2); UREA NITROGEN, BLOOD 11 mg/dL (7-18)
[2019-11-13] MEDS: DOCUSATE SODIUM 100 MG CAPSULE PO SCH ×2 (09:00→20:57)
[2019-11-13 12:18] LABS: ABG A-A DIFF O2 29.7 mmHg (10-20.0); ABG BASE EXCESS 4.9 mmol/L (-2.0-3.0); ABG CARBOXYHEMOGLOBIN 1.3 % (0.0-1.5); ABG HCO3 28.1 mmol/L (22.0-26.0); ABG METHEMOGLOBIN 0.3 % (0.0-1.5); ABG OXYGEN CONTENT 17.6 mL/dL (15.0-23.0); ABG OXYGEN SATURATION 92.9 % (95.0-98.0); ABG OXYHEMOGLOBIN 91.4 % (94.0-100.0); ABG PCO2 45 mmHg (35-45); ABG PH 7.427 (7.35-7.450); ABG TOTAL HEMOGLOBIN 13.7 G/dL (12.0-18.0); PO2, ARTERIAL BG 65.8 mmHg (84.0-92.0); SOURCE, BLOOD GAS ARTERIAL
[2019-11-13 12:19] LABS: O2 DEVICE,BLOOD GAS ROOM AIR (ROOM AIR); SITE, BLOOD GAS LFT RADIAL
[2019-11-13] MEDS ORDERED: SITA50 PO (12:40)
[2019-11-13] MEDS ORDERED: PANT-31 PO (12:49)
[2019-11-13] MEDS ORDERED: ASPI-728 PO (12:51)
[2019-11-13 12:56] LABS: GLUCOMETER DEV NAME(LOC) 2WR.2; GLUCOSE,POINT OF CARE 116 MG/DL (70-110)
[2019-11-13] MEDS ORDERED: SIME80 PO (12:56)
[2019-11-13] MEDS ORDERED: GUAIF10 PO (12:58)
[2019-11-13] MEDS ORDERED: LORA-999 PO (12:59)
[2019-11-13] MEDS ORDERED: FENO48TA20 PO (13:03)
[2019-11-13 15:42] VITALS: BP 114/73
[2019-11-13 17:31] LABS: GLUCOMETER DEV NAME(LOC) 2WR.1C; GLUCOSE,POINT OF CARE 121 MG/DL (70-110)
[2019-11-13 17:48] LABS: GLUCOMETER DEV NAME(LOC) 2WR.2; GLUCOSE,POINT OF CARE 87 MG/DL (70-110)
[2019-11-13] MEDS: LORazepam 0.5 MG TABLET PO PRN (20:55)
[2019-11-13] MEDS: PANTOPRAZOLE SODIUM 40 MG DR TABLET PO SCH (20:55)
[2019-11-13] MEDS: SIMVASTATIN 20 MG TABLET PO SCH (20:55)
[2019-11-13] MEDS: SENNA 187 MG TABLET PO SCH (20:58)
[2019-11-13 21:03] VITALS: BP 107/69
[2019-11-13 23:00] LABS: GLUCOMETER DEV NAME(LOC) 2WR.2; GLUCOSE,POINT OF CARE 130 MG/DL (70-110)
[2019-11-13 23:23] VITALS: BP 117/72
[2019-11-14 05:15] LABS: GLUCOMETER DEV NAME(LOC) 2WR.1C; GLUCOSE,POINT OF CARE 173 MG/DL (70-110)
[2019-11-14 06:33] LABS: GLUCOMETER DEV NAME(LOC) 2WR.2; GLUCOSE,POINT OF CARE 118 MG/DL (70-110)
[2019-11-14] MEDS: METOPROLOL TARTRATE 25 MG TABLET PO SCH (07:55)
[2019-11-14] MEDS: ENOXAPARIN SODIUM 40 MG/0.4 ML PF SYRINGE SQ SCH (07:55)
[2019-11-14] MEDS: OXYGEN THERAPY IH SCH (07:55)
[2019-11-14] MEDS: SitaGLIPtin PHOSPHATE 50 MG TABLET PO SCH (07:55)
[2019-11-14] MEDS: LOSARTAN POTASSIUM 50 MG TABLET PO SCH (07:55)
[2019-11-14] MEDS: GABAPENTIN 100 MG CAPSULE PO SCH (07:56)
[2019-11-14] MEDS: MULTIVITAMINS WITH MINERALS, THERAPEUTIC TABLET PO SCH (07:56)
[2019-11-14] MEDS: HYDROCHLOROTHIAZIDE 25 MG TABLET PO SCH (07:56)
[2019-11-14] MEDS: FENOFIBRATE 48 MG TABLET PO SCH (07:57)
[2019-11-14] MEDS: COLD CREAM, SKIN EMOLLIENT 170 GM JAR TP SCH (07:57)
[2019-11-14] MEDS: ESCITALOPRAM OXALATE 10 MG TABLET PO SCH (07:57)
[2019-11-14] MEDS: DOCUSATE SODIUM 100 MG CAPSULE PO SCH (08:12)
[2019-11-14] MEDS: GuaiFENesin [SUGAR-FREE] 200 MG/10 ML SOLUTION UDCUP PO PRN (08:16)
[2019-11-14 08:20] VITALS: BP 146/70
[2019-11-14] MEDS: SIMETHICONE 80 MG CHEWABLE TABLET CHEW PRN (12:38)
[2019-11-14 13:03] LABS: GLUCOMETER DEV NAME(LOC) 2WR.2; GLUCOSE,POINT OF CARE 130 MG/DL (70-110)
== END 2019-11-14 15:00 | disposition home health service (06) | DRG 947 ==
LOC: 2WR 14:10
PROVIDERS: ADMIT Physical Medicine & Rehabilitation; ATTEND Physical Medicine & Rehabilitation
DX: R53.81 Other malaise (principal); U07.1 COVID-19; J12.89 Other viral pneumonia; J96.01 Acute respiratory failure with hypoxia; G82.50 Quadriplegia, unspecified; E11.9 Type 2 diabetes mellitus without complications; I10 Essential (primary) hypertension; L89.159 Pressure ulcer of sacral region, unspecified stage; R13.10 Dysphagia, unspecified; F41.9 Anxiety disorder, unspecified; E78.00 Pure hypercholesterolemia, unspecified; E78.5 Hyperlipidemia, unspecified; G47.00 Insomnia, unspecified; K59.00 Constipation, unspecified; Z79.4 Long term (current) use of insulin; Z82.49 Family history of ischemic heart disease and other diseases of the circulatory system; Z83.3 Family history of diabetes mellitus; Z85.3 Personal history of malignant neoplasm of breast; Z93.0 Tracheostomy status
CPT/HCPCS: 82805; 87081; 92507; 92523; 94640; 97110; 97116; 97163; 97166; 97530; 97535; 99366; G0238; J1650; J1815